=== PATIENT | female | born 2005 | race Caucasian/White ===

== ENCOUNTER 2025-05-05 17:52 | Emergency (ER) | payer BC, SELFPAY ==
[2025-05-05 18:04] VITALS: BP 122/80; PULSE 66; RESP 18; TEMP 36.6; O2SAT 98; BMI 22.6
--- NOTE | 2025-05-05 18:09 | ED_ITS ---
HPI - Female Genitourinary General Chief complaint: Urogenital-Female Stated complaint: uti Time Seen by Provider: 05/05/25 19:23 Source: patient, RN notes reviewed and old records reviewed Mode of arrival: ambulatory Limitations: no limitations History of Present Illness ED Provider: Malu AYON Narrative: 19 year old female presents for evaluation of I think I have a UTI. She reports UTI symptoms for the last 10 days with burning with urination, frequency She reports that she is not concerned for any sexually transmitted infections She took 2 home UTI tests and reports they were both positive Related Data Previous Rx's ?Medication ?Instructions ?Recorded cefuroxime axetil 250 mg tablet 250 mg PO Q12H #10 tabs 05/05/25 phenazopyridine 200 mg tablet 200 mg PO TID PRN pain 6 doses #6 05/05/25 (Pyridium) tabs Allergies Allergy/AdvReac Type Severity Reaction Status Date / Time amoxicillin Allergy Hives Verified 05/05/25 18:07 Penicillins [PCN] Allergy Hives Verified 05/05/25 18:07 Review of Systems Constitutional: Constitutional: Denies body ache(s), Denies chills and Denies fever(s) ENT: Denies vertigo Cardiovascular: Cardiovascular: Denies chest pain and Denies dyspnea Respiratory: Respiratory: Denies cough and Denies dyspnea Gastrointestinal: Gastrointestinal: Reports abdominal pain, Denies nausea and Denies vomiting Genitourinary: Genitourinary: Reports hematuria and Reports dysuria Musculoskeletal: Musculoskeletal: Denies back pain Integumentary/Breasts: Skin/Breast: Denies rash Neurologic: Denies vertigo Psychiatric: Psychiatric: Denies anxiety PMFSH Social History Social History Advance Directives: No Advance Directives Information Provided: No Do you have a plan to hurt others: No Plan Physical Exam Vital Signs: Vital Signs: Last Vital Signs Temp 98 F 05/05/25 18:04 Pulse 66 05/05/25 18:04 Resp 18 05/05/25 18:04 BP 122/80 05/05/25 18:04 Pulse Ox 98 05/05/25 18:04 O2 Del Method Room Air 05/05/25 18:04 BMI result Body Mass Index 22.6 Const: General: healthy appearing, comfortable, no acute distress, alert and awake Nutritional Appearance: well nourished Orientation/consciousness: patient oriented x3 HEENT: Head: Yes normocephalic and Yes atraumatic Eyes: Eyelids: Yes eyelids normal Conjunctivae: conjunctivae normal Sclerae: sclerae normal Corneas: corneas normal Pupils: Equal, round and reactive pupils present EOM: EOMs intact bilaterally Neck: Neck: Yes full ROM Resp: Effort & Inspection: normal respiratory effort, able to speak in complete sentences and not labored Skin: General skin exam: elasticity normal Neuro: General: patient oriented x3 Cranial nerves: Yes Equal, round and reactive pupils present and Yes Bilaterally intact EOM present Cognition (Neuro): normal cognition Course Course Course Narrative: RME, this is a rapid medical exam performed by Gilberto Toribio please refer to primary provider for complete H&P- 19 year old female presents for evaluation of UTI symptoms. She reports she took 2 home UTI tests that were positive. Plan for UA Medications Administered Discontinued Medications Generic Name Dose Route Start Last Admin Trade Name Freq PRN Reason Stop Dose Admin Cefuroxime Axetil 250 mg 05/05/25 19:57 05/05/25 20:03 Cefuroxime Axetil 250 Mg Tablet PO 05/05/25 19:58 250 mg ONCE ONE Administration Medical Decision Making Medical Decision Making [facility] Narrative: 19-year-old female presents for evaluation of UTI symptoms. She declines examination or concern for STI. Her urinalysis does show white cells with positive leukocyte esterase. No nitrites. Given that she is symptomatic we will treat with cefuroxime b.i.d. x5 days. Differential Diagnosis Differential Diagnoses: The differential diagnosis associated with the present ation includes UTI Cystitis Pyelonephritis Dysuria Lab Data Labs: Lab Results 05/05/25 Range/Units 18:15 Urine Color Yellow Urine Appearance Clear Urine pH 6.5 (5.0-9.0) Ur Specific [place] <= 1.005 (1.005-1.025) Urine Protein Negative (Neg-Trace) mg/dL Urine Glucose (UA) Negative (Negative) mg/dL Urine Ketones Negative (Negative) mg/dL Urine Blood Negative (Negative) Urine Nitrite Negative (Negative) Ur Leukocyte Esterase Moderate (2+) H (Negative) Urine RBC 0-2 (0-2) /HPF Urine WBC 6-10 H (0-5) /HPF Ur Squamous Epith Cells 3-5 (0-2) /HPF Urine Bacteria None Seen (None Seen) Hyaline Casts 0-2 (0-2) /LPF Discharge Plan Discharge Clinical Impression: Urinary tract infection Patient Disposition: Home, Self-Care Instructions: Urinary Tract Infection in Women (ED) Additional Instructions: Your UA did appear to show a UTI Take the antibiotic as prescriebd Take the Azo/Pyridium for pain relief This will turn your urine orange temporarily Follow up with your primary doctor Return for new or worsening symptoms Prescriptions: New cefuroxime axetil 250 mg tablet 250 mg PO Q12H Qty: 10 0RF phenazopyridine [Pyridium] 200 mg tablet 200 mg PO TID PRN (Reason: pain) Qty: 6 0RF Print Language: Amharic
[2025-05-05 18:22] LABS: Appearance Urine Clear; Color Urine Yellow; Glucose Urine UA Negative (Negative); Leukocyte Esterase Urine Moderate (2+) (Negative); Nitrite Urine Negative (Negative); PH 6.5 (5.0-9.0); Specific Gravity - Urine <= 1.005 (1.005-1.025); UMIC TRIGGER UACC YES; Urine Blood Negative (Negative); Urine Ketones Negative (Negative); Urine Protein Negative (Neg-Trace)
[2025-05-05 18:24] LABS: Bacteria Urine None Seen (None Seen); Hyaline Casts Urine 0-2 /LPF (0-2); RBC Urine 0-2 /HPF (0-2); UACC Culture Trigger YES
[2025-05-05] MEDS: cefuroxime axetiL 250 MG TABLET PO (20:03)
[2025-05-05 20:32] VITALS: BP 122/80; PULSE 66; RESP 18; TEMP 36.6; O2SAT 98
== END 2025-05-05 20:32 | disposition home or self-care (01) ==
PROVIDERS: Physician Assistant; Emergency Provider Emergency Medicine
DX: N39.0 Urinary tract infection, site not specified (principal); R30.0 Dysuria; R35.0 Frequency of micturition
CPT/HCPCS: 81001; 87086; 87147; 99282; 99283